=== PATIENT | female | born 2000 | race Caucasian/White ===

== ENCOUNTER 2019-02-21 14:28 | Outpatient (REF) | payer OTHER, SELFPAY ==
[2019-02-22 13:09] LABS: Chlamydia Result Negative (Negative); GC Result Negative (Negative)
== END 2019-02-21 14:48 ==
LOC: LBN 14:28
PROVIDERS: PCP Pediatrics; Visit Provider Nurse Practitioner Women's Health
DX: Z11.3 Encounter for screening for infections with a predominantly sexual mode of transmission (principal)
CPT/HCPCS: 87491; 87591

== ENCOUNTER 2019-09-14 01:39 | Outpatient (CLI) | payer OTHER, SELFPAY | END 2019-09-14 01:59 | PROVIDERS: PCP Pediatrics; Visit Provider Nurse Practitioner Family | DX: R78.71 Abnormal lead level in blood (principal) | CPT/HCPCS: 36415; 83655 ==

== ENCOUNTER 2021-03-05 12:17 | Outpatient (REF) | payer OTHER, SELFPAY ==
--- NOTE | 2021-03-05 11:15 | PAPFT_PTH ---
PATIENT: Blanquita Elena LOC: [facility]#:[id number] AGE/SX: 20/F ROOM: RE03/05/[address]: Johnna Cohen NP : 2000 BED: DIS: 03/05/2021 SPEC #: [id number] RECD: 03/05/21 13:09 STATUS: FRANCISCO REElisabeth #: [id number] OSCAR: 03/05/21 11:[address]: Johnna Cohen NP DEPT: [facility] Cytology RECD BY: Fariba Ramirez ENTERED: 03/05/21 13:10 SP TYPE: PAPFT OTHR DR: Dinora Jones Tissues: 1 - CX/ENDOCX FOR PAP SMEARS Procedures: PAP THIN PREP/[facility] Screening Comments: [id number]
== END 2021-03-05 12:18 | disposition home or self-care (01) ==
LOC: NCHCN 12:17
PROVIDERS: PCP Nurse Practitioner Family; Visit Provider Nurse Practitioner Women's Health
DX: Z12.4 Encounter for screening for malignant neoplasm of cervix (principal)
CPT/HCPCS: 88142

== ENCOUNTER 2024-02-04 17:25 | Outpatient (REF) | payer OTHER, SELFPAY ==
--- OUTSIDE RECORDS SUMMARY | 2024-02-04 17:28 | XMS_ITS | Encounter Summary ---
Author Organization [facility] Address [address] [place] [address] Care Team Providers Care Wind Development Director Name Role Phone Unavailable Primary Care Provider Unavailabl e Encounter Details Date Type Department Care Team (Late st Contact Info) Description 02/21/2019 Lab Requisition [facility] Pathology & Laboratory Medicine - [address] [address] Unknown, Provider, MD Social History Tobacco Use Types Packs/Day Years Used Date Smoking Tobacco: Never Assessed Comments Unknown Sex and Gender Information Value Date Recorded Sex Assigned at Not on file Legal Sex Female 16:06 EST Gender Identity Not on file Sexual Orientation Not on file documented as of this encounter Plan of Treatment Not on file documented as of this encounter Procedures Procedure Name Priority Date/Time Associated Diagnosis Comments CHLAMYDIA/N. GONORRHOEAE AMPLIFIED NUCLEIC ACID Routine 02/21/2019 13:10 EST documented in this encounter Results * CHLAMYDIA/N. GONORRHOEAE AMPLIFIED RNA (02/21/2019 13:10 EST) Neisseria gonorrhoeae Result Negative Negative 02/22/2019 13:05 EST [facility] Chlamydia trachomatis Result Negative Negative 02/22/2019 13:05 EST [facility] Urine URINE / Unknown 02/21/2019 1 3:10 EST 02/21/2019 21:13 EST Narrative [facility] - 02/22/2019 13:05 EST A first catch urine specimen is acceptable for detection of Gonorrhea and Chlamydia, but might detect up to 10% fewer infections when compared with vaginal and endocervical swab samples. us Provider Unknown MD MICROBIOLOGY - GENERAL ORDER PRATEEK Final Result [facility] [address] [place] [address] documented in this encounter Visit Diagnoses Not on filedocumented in this encounter
--- OUTSIDE RECORDS SUMMARY | 2024-02-04 17:28 | XMS_ITS | Clinical Summary ---
Author Organization [facility] Address [facility] [place] [address] Care Team Providers Care Accounts Payable Manager Name Role Phone Izzy Bass MD Primary Care Provider [phone]- [phone] Allergies Active Allergy Reactions Criticality Noted Date Comments Fish Containing Products Shellfish Derived Tree Nut Medications Medication Sig Dispensed Refills Start Date End Date Status CIS Free Text Med - Zyrtec 09/12/2009 Active DIPHENHYDRAMINE HCL (BENADRYL ORAL) 09/12/2009 Active fluticasone (FLOVENT HFA) 44 mcg/Actuation inhaler 2 Puff(s), Inh, Twice daily 09/12/2009 Active epiNEPHrine (EPIPEN) 0.3 mg/0.3 mL injection 0.3MG/0.3ML, IM, PRN 09/12/2009 Active Levalbuterol Tartrate (XOPENEX HFA) 45 mcg/Actuation inhaler 1-2 puffs, Inh, Q4-6H, prn 09/12/2009 Active Active Problems Problem Noted Date Diagnosed Date CIS - Allergy evaluation to date 09/12/2009 Overview (04/29/2010): SENSITIZATIONS: Dust mite 2+, cat 1+, dog 1+, grass pollen equivocal, and tree pollen 1 to 2+ (12/2008). ADDITIONAL SENSITIZATION: Hazelnut 0.37 kU/L class 1, pecan 0.60 kU/L class 1, walnut 0.51 kU/L class 1, negative testing to pistachio, sesame seed, peanut, cashew, [place] nut, and almond (12/2007). ADDITIONAL SENSITIZATION: Prick skin testing by Dr. Rosas revealed large response to walnut () with pseudopods, negative to almonds (2002). RAST ([place], 08/14/09) results requested, received, and reviewed: Positive: Clam 0.76, class 2; shrimp 0.78, class 2; salmon 1.14, class 2; hazelnut 0.41 ku/L, class 1, macadamia nut 0.57, class 1 Negative:Oyster, scallop, crab, lobster, codfish, halibut, tuna, megrim, peanut, pine nut, almond, brazil nut, food nut panel 2 (pecan, cashew, pistachio, walnut), cat, dog, amanda, sesame seed 08/2009 skin tests positive to nuts: Foods: [place] (0), [place] (4+), Cashew (0), Pecan (2+), Hazelnut (4+), [place] nut (0), Tuna(0) Controls: Positive (4+), Negative (0) Method: Single prick; Location: Back; Placed by: RN Reading/interpretation: Mega Johnson MD (measurements on testing sheet in medical record) * Reactions may still occur despite negative skin tests. Lower skin test class does NOT predict reaction severity (severe reactions may still occur with negative or low positive skin tests). Negative skin tests to foods do not have predictive value for delayed food reactions or intolerance. Continue avoidance of nuts and seafood Previous SPIROMETRY: FEV1 1.6 L, 85% predicted: FEVC 1.89 L, 86% predicted; and ratio is 0.93. No significant change after bronchodilator (12/2008). FeNO 11 ppb (12/2008). 02/2009 spirometry: FEV1 of 1.87 L, 77% predicted; the FEVC 2.11 L, 80% predicted; and the ratio is 0.89. 09/12/09 spirometry: FEV1 1.91L, 89% predicted; FVC 2.34L, 92% predicted; ratio 0.82. C/w possible mild obstruction. 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 09/12/09: No accidents with nuts. Tolerates peanut. Itching in the mouth w/ salmon twice. Avoiding seafood. Lab testing done at [facility] in July 2009. RASTS positive to seafood, low positive to hazelnut and macadamia nut. CIS - Mild persistent atopic dermatitis Overview (04/29/2010): 09/12/09: No problems CIS - Mild persistent seasonal asthma Overview (04/29/2010): 09/12/09: Doing well. No cough, no wheeze recently. In November and April had URI sx. Had some wheezing and drop in peak flows. No oral in the Spring but did use a course in November. Used Flovent 44 2p bid but weaned for the summer. Flovent helped. Currently rarely using Xopenex. No nocturnal cough. ACT = 27. perfect score. Immunizations Name Administration Dates Next Due Influenza Vaccine, Whole 12/26/2007 Social History Tobacco Use Types Packs/Day Years Used Date Smoking Tobacco: Never Sex and Gender Information Value Date Recorded Sex Assigned at Not on file Gender Identity Not on file Sexual Orientation Not on file Plan of Treatment Health Maintenance Due Date Last Done Comments Chlamydia Screening 09/22/2014 HPV vaccine (1 - 3-dose series) 09/22/2014 HIV screen 09/22/2017 Hepatitis C Screening 09/22/2017 Hepatitis B vaccine (0-59 yrs) (1) 09/22/2018 Tetanus/Diphtheria/Pertussis Vaccines (1 - Tdap) 09/22 PAP Smear 09/22/2020 Covid-19 Vaccine (1 - 2023-25 season) 2023 Influenza (Flu) vaccine (1 o f 1 - Influenza standard series) 10/24/2023 12/26/2007 Care Teams Accounts Payable Manager Relationship Specialty Start Date End Date Izzy Bass MD PCP - General 09/12/14
--- OUTSIDE RECORDS SUMMARY | 2024-02-04 17:28 | XMS_ITS | Encounter Summary ---
Author Organization [facility] Address [address] [place] [address] Care Team Providers Care Land Development Manager Name Role Phone Unavailable Primary Care Provider Unavailabl e Encounter Details Date Type Department Care Team (Late st Contact Info) Description 03/07/2021 Lab Requisition [facility] Pathology & Laboratory Medicine - [facility] [address] [place] [address] Johnna Cohen, RPG PROGRAMMER [address] [place] [phone] Encounter for gynecological examination (general) (routine) without abnormal findings Social History Tobacco Use Types Packs/Day Years Used Date Smoking Tobacco: Never Assessed Interpersonal Safety Answer Date Record ed Physically Hurt Never 01/16/2020 Verbally Threaten Not on file 01/16/2020 Comments Unknown Sex and Gender Information Value Date Recorded Sex Assigned at Not on file Legal Sex Female 16:06 EST Gender Identity Not on file Sexual Orientation Not on file documented as of this encounter Plan of Treatment Not on file documented as of this encounter Procedures Procedure Name Priority Date/Time Associated Diagnosis Comments CHLAMYDIA/N. GONORRHOEAE AMPLIFIED NUCLEIC ACID, THINPREP Today 03/05/2021 11:15 EST Encounter for gynecological examination (general) (routine) without abnormal findings documented in this encounter Results * CHLAMYDIA/N. GONORRHOEAE AMPLIFIED RNA, THINPREP (03/05/2021 11:15 EST) Neisseria gonorrhoeae Result Negative Negative 03/07/2021 14:56 EST [facility] Chlamydia trachomatis Result Negative Negative 03/07/2021 14:56 EST [facility] Papanicolaou smear specimen (specimen) CERVIX UTERI STRUCTURE / Unknown 03/05/2021 11:15 EST 03/07/2021 11:09 EST us Johnna Cohen RPG PROGRAMMER MICROBIOLOGY - GENERAL OR DERABLES Final Result Performing Organization Address City/State/[facility] Co de Phone Number [facility] [address] [place] [id number] documented in this encounter Visit Diagnoses Diagnosis Encounter for gynecological examination (general) (routine) without abnormal findings documented in this encounter
--- OUTSIDE RECORDS SUMMARY | 2024-02-04 17:28 | XMS_ITS | Encounter Summary ---
Author Organization [facility] Address [facility] [place] [address] Care Team Providers Care Ocean Fishing Guide Name Role Phone Izzy Bass MD Primary Care Provider [phone]- [phone] Reason for Visit * Reason Comments Follow-up Encounter Details Date Type Department Care Team (Late st Contact Info) Description 12/19/2014 4:00 PM EDT Office Visit Dermatology at [facility] [address] [place] [phone] Estelle Sheppard MD [facility] [address] [facility] [place] [address] Acne vulgaris; Multiple benign nevi Social History Tobacco Use Types Packs/Day Years Used Date Smoking Tobacco: Never Sex and Gender Information Value Date Recorded Sex Assigned at Not on file Gender Identity Not on file Sexual Orientation Not on file documented as of this encounter Patient Instructions * Patient Instructions* Eligio Mcfadden, ROVERTO - 12/19/2014 4:26 PM EDT Plan lillie Juares: What causes acne? Many factors contribute to the development of acne, including plugging of follicles (pores), bacteria, hormones, and inflammation. Each of these factors is treated with a different medication, and consistency with medication use is critical for achieving the best results. Maximal improvement is generally not seen until 10-12 weeks into treatment. Does diet affect acne? Studies have shown that drinking excessive amounts of cow's milk (especially skim) can worsen acne.Foods with a high glycemic index (chips, crackers, cake, sweets) have also been shown to worsen acne. Eating a balanced diet with lots of whole grains, fresh fruits, vegetables, and whole foods may help. Is acne hereditary? There is no single gene that causes acne, but children and teenagers whose parents have a history of severe acne themselves are at higher risk for developing acne. What is the best face wash to use for my child's acne? Benzoyl peroxide in a 2-5% concentration is the best face wash to use. This is available over the counter at most pharmacies, or you can purchase it online. Some good brands include Panoxyl 4% wash, Topix 5% wash, and Neutrogena Clear Pore Cleanser/Mask 3.5% (available on appCREAR). Benzoyl peroxide reduces bacteria and also prevents the development of antibiotic resistance. Keep in mind that this product may bleach pillowcases and towels, so it's safest to use white linens. Is it a good idea to pop/squeeze pimples and blackheads? No! Picking and squeezing at acne makes it worse, and can leave permanent scars. What moisturizers are best to use for patients with acne? Any moisturizer that is fragrance free and non-comedogenic is fine. Some good brands include Cetaphil, CeraVe, Aveeno, and Neutrogena. Can hair products worsen acne? Yes, some hair pomades and pastes may make acne on the forehead worst. For this reason, we recommend avoiding any thick or greasy hair products. What types of medications are used to treat acne? Topical antibiotics: reduce the amount of bacteria on the skin Topical retinoids: unplugs clogged pores, prevent formation of new blackheads Oral antibiotics: reduces inflammation and help resolve deeper, bigger acne pimples Oral retinoids (Accutane/isotretinoin): treats deeper acne, particularly acne that is causing scars Oral control pills: regulates hormones that may be contributing to acne development Oral spironolactone: blocks testosterone and may be used in females with acne documented in this encounter Progress Notes * Eligio Mcfadden LPN - 12/19/2014 4:00 PM EDT Images from the original note were not included. PEDIATRIC DERMATOLOGY FOLLOW-UP VISIT S: Blanquita Elena is here today for follow-up of multiple nevi. she was last seen by myself on 09/12/2014, at which time it was recommended that we watch the nevus on the R medial back clinically given slight asymmetry. Today Blanquita reports that she has no concerns today. No changes in her nevi as far as she is aware. Review of Systems: Other than those stated above, the patient denies any fevers, chills, night sweats, weight loss, loss of appetite or other skin complaints. Medications: Current Outpatient Prescriptions Medication Sig Dispense Refill ??? CIS Free Text Med - Zyrtec ??? DIPHENHYDRAMINE HCL (BENADRYL ORAL) ??? fluticasone (FLOVENT HFA) 44 mcg/Actuation inhaler 2 Puff(s), Inh, Twice daily ??? epiNEPHrine (EPIPEN) 0.3 mg/0.3 mL injection 0.3MG/0.3ML, IM, PRN ??? Levalbuterol Tartrate (XOPENEX HFA) 45 mcg/Actuation inhaler 1-2 puffs, Inh, Q4-6H, prn No current facility-administered medications for this visit. Allergies: Allergies Allergen Reactions ??? Fish Containing Products ??? Shellfish Derived ??? Tree Nut PMHx: Patient Active Problem List Diagnosis Code ??? CIS - Allergy evaluation to date ??? 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 CIS - Mild persistent atopic dermatitis ??? 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 A full body skin examination was performed of the scalp, face, eyelids, lips, neck, chest, abdomen,back, bilateral arms, buttocks, bilateral legs, hands, feet and nails. Findings were within normal limits except for as follows: -No change in nevi on right medial back from previous visit -7 mm symmetric brown papule on the right posterior calf -Grouped 1-2 mm brown macules coalescing into a patch with no background pigment change on the leftlateral calf A/P: 1) Overall benign appearing nevi x2 on right medial back, no change from previous visit - Discussed benign nature of lesion and provided reassurance. - No treatment necessary at this time. - Observe skin for change in color, size or character. Call if such occur. 2) Agaminated nevi vs segmental lentiginosis, left calf, reassurance provided - Discussed benign nature of lesion and provided reassurance. - No treatment necessary at this time. - Observe skin for change in color, size or character. Call if such occur. 3) Mild inflammatory acne, with no evidence of scarring. We discussed the multifactorial etiology of acne, with contributing factors including follicular plugging, bacteria, hormones, and inflammation. Each of these factors is treated with a different medication, and consistency with medication use is of utmost importance for achieving the best results. Maximal improvement is generally not seen until 10-12 weeks into treatment. More than 3 servings a week of milk has also been shown to worsen acne, with skim milk showing a more direct correlation than whole milk. Fortunately, cheese and yogurt do not have this association so teenagers with acne can still make sure that they get enough calcium this way. High glycemic indexfoods have also been shown to exacerbate acne. --start benzoyl peroxide wash (2-5% concentration) 3 times weekly Alternative treatments for those who wish to avoid antibiotics: For girls, consider: tea tree oil daily (risk is allergic contact dermatitis), spearmint tea twice daily. For boys and girls: niacinamide 750 mg (NOT niacin) +/- zinc gluconate 25 mg/d (risk is GI upset) RTC: 1 year (Level 1) ELIGIO MCFADDEN LPN has performed the documentation for this encounter in the presence of and acting as a scribe for Dr. Estelle Sheppard MD. George Calderón has performed the documentation for this encounter in the presence of and acting as a scribe for Dr. Sheppard. I performed the above scribed service and agree with the accuracy of the documentation in this encounter. Estelle Sheppard MD Calibration Checker, Pediatric Dermatology Section of Dermatology [facility], [facility]. [facility] documented in this encounter Plan of Treatment Not on file documented as of this encounter Visit Diagnoses Diagnosis Acne vulgaris Other acne Multiple benign nevi Benign neoplasm of skin, site unspecified documented in this encounter Care Teams Ocean Fishing Guide Relationship Specialty Start Date End Date Izzy Bass MD PCP - General 09/12/14 documented as of this encounter
--- OUTSIDE RECORDS SUMMARY | 2024-02-04 17:28 | XMS_ITS | Clinical Summary ---
Author Organization [facility] Address [address] [place] [address] Care Team Providers Care Tape Making Machine Operator Name Role Phone Unavailable Primary Care Provider Unavailabl e Social History Tobacco Use Types Packs/Day Years [...] Health Maintenance Due Date Last Done Comments Hepatitis C Screen 2000 Hepatitis B Vaccine (1 of 3 - 19+ 3-dose series) 09/22 COVID-19 Vaccine ( season) 2023
--- OUTSIDE RECORDS SUMMARY | 2024-02-04 17:28 | XMS_ITS | Encounter Summary ---
Author Organization [facility] Address [address] [place] [address] Care Team Providers Care Assembly Department Supervisor Name Role Phone Unavailable Primary Care Provider Unavailabl e Encounter Details Date Type Department Care Team (Late st Contact Info) Description 03/07/2021 Lab Requisition [facility] Pathology & Laboratory Medicine - [facility] [address] [place] [address] Johnna Cohen, PIPE CUTTER [address] [place] [phone] Encounter for other general examination Social History Tobacco Use Types Packs/Day Years [...] Procedure Name Priority Date/Time Associated Diagnosis Comments PAP TEST Today 03/05/2021 11:15 EST Encounter for other general examination documented in this encounter Results * PAP TEST (03/05/2021 11:15 EST) Specimens A. Cervix and/or Endocervix , ThinPrep Imaging System with Manual Evaluation 03/13/2021 13:33 EST [facility] Specimen Adequacy Satisfactory for Evaluation - transformation zone component present 03/13/2021 13:33 EST [facility] General Categorization Negative for intraepithelial lesion or malignancy 03/13/2021 13:33 EST [facility] Attestation . 03/13/2021 13:33 EST [facility] at 1333 Clinical History See below 03/13/19 13:33 EST [facility] Performing Lab [facility] 03/13/2021 13:33 EST [facility] Scanned Images 03/13/2021 13:33 EST [facility] Papanicolaou smear specimen (specimen) CERVIX UTERI STRUCTURE / Unknown 03/05/2021 11:15 EST 03/07/2021 9:49 EST us Johnna Cohen APRN PATHOLOGY ORDERABLES Bridget l Result [facility] [address] [place] [address] documented in this encounter Visit Diagnoses Diagnosis Encounter for other general examination documented in this encounter
--- OUTSIDE RECORDS SUMMARY | 2024-02-04 17:28 | XMS_ITS | Referral Summary ---
Author Organization [facility] Address [address] [place] [address] Care Team Providers Care Pharmacy Salesperson Name Role Phone Unavailable Primary Care Provider [...] Orientation Not on file Plan of Treatment Not on file
--- OUTSIDE RECORDS SUMMARY | 2024-02-04 17:28 | XMS_ITS | Encounter Summary ---
Author Organization [facility] system Address [address] [place] [address] Care Team Providers Care Client Operations Manager Name Role Phone Unavailable Primary Care Provider Unavailabl e Encounter Details Date Type Department Care Team (Late st Contact Info) Description 09/14/2019 Lab Requisition [facility] Pathology & Laboratory Medicine - [facility] [address] [place], [place] [address] Outr Resulting Lab, Provider Social History Tobacco Use Types Packs/Day Years [...] Procedure Name Priority Date/Time Associated Diagnosis Comments [facility] Routine 09/14/2019 13:30 EDT documented in this encounter Results * [facility] (09/14/2019 13:30 EDT) Lead <2.0 <=4.9 ug/dL 09/15/2019 11:43 EDT [facility] Blood VENOUS BLOOD / Unknown 09/14/2019 13:30 EDT 09/14/2019 21:32 EDT Narrative [facility] - 09/15/2019 11:43 EDT Testing performed using Graphite Furnace Atomic Absorption Spectroscopy. This test was developed and its performance characteristics determined by the [facility]. ??It has not been cleared or approved by the FDA. ??The laboratory is regulated under CLIA as qualified to perform high complexity testing. ??This test is used for clinical purposes. us Provider Outr Resulting Lab CHEMISTRY & BLOOD GA S ORDERABLES Final Result [facility] [address] [place] [address] documented in this encounter Visit Diagnoses Not on filedocumented in this encounter
--- OUTSIDE RECORDS SUMMARY | 2024-02-04 17:28 | XMS_ITS | Encounter Summary ---
Author Organization [facility] Address [facility] [place] [address] Care Team Providers Care Jira Developer Name Role Phone Izzy Bass MD Primary Care Provider [phone] Reason for Visit * Reason Comments Skin Lesion Encounter Details Date Type Department Care Team (Late st Contact Info) Description 09/12/2014 10:00 AM EDT Office Visit Dermatology at [facility] [address] [place] [address] Estelle Sheppard MD [facility] [address] [place] [address] Multiple benign nevi; Congenital nevus Discharge Disposition: Home Social History Tobacco Use Types Packs/Day Years Used Date Smoking Tobacco: Never Assessed Sex and Gender Information Value Date Recorded Sex Assigned at Not on file Gender Identity Not on file Sexual Orientation Not on file documented as of this encounter Progress Notes * Lisa Sandoval LPN - 09/12/2014 11:03 AM EDT Images from the original note were not included. PEDIATRIC DERMATOLOGY NEW PATIENT VISIT CHIEF COMPLAINT: multiple nevi REFERRED BY: Izzy Bass HISTORY OF PRESENT ILLNESS: Blanquita Elena is a 13 y.o. female who presents for evaluation of dark nevi on her back. I am seeing her in consultation at the request of Izzy Bass. 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 Previous treatments include. They are not bothersome. Uses NO ADD SPF 15-20 and up when outside. The patient's dermatology intake form was reviewed, signed, and dated. Her relevant PMH, FH, and SHincludes: PAST MEDICAL HISTORY: Eczema / sensitive skin Seasonal allergies, birch pollen sees allergy at Heart murmur work up [address] 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 CIS Free Text Med - Zyrtec ??? DIPHENHYDRAMINE HCL (BENADRYL ORAL) ??? fluticasone (FLOVENT HFA) 44 mcg/Actuation inhaler 2 Puff(s), Inh, Twice daily ??? epiNEPHrine (EPIPEN) 0.3 mg/0.3 mL injection 0.3MG/0.3ML, IM, PRN ??? Levalbuterol Tartrate (XOPENEX HFA) 45 mcg/Actuation inhaler 1-2 puffs, Inh, Q4-6H, prn No current facility-administered medications on file prior to visit. ALLERGIES: Tree nuts, fish and shell fish REVIEW OF SYSTEMS: Please see HPI and PMH. No fevers, rhinorrhea, cough, decreased appetite, diarrhea, or vomiting. PHYSICAL EXAMINATION: Interiano skin type II The patient is a well appearing female who is developmentally appropriate. A complete skin examination was performed including the scalp, face, eyelids, ears, lips, neck, chest, back, abdomen, buttocks, bilateral arms and legs, bilateral hands and feet, and nails. Findings were within normal limitsexcept for the following: - 6 mm slightly irregularly bordered papule on the right medial back just inferior to that nevus a 5 mm dark brown symmetric papule both with globular pigment pattern on dermoscopy - 7 mm symmetric brown papule on the right posterior calf Photo taken with patient verbal consent ASSESSMENT AND PLAN: 1) Overall benign-appearing nevi x 2 right medial back - Measurements and picture taken today, will plan to monitor clinically - Pt instructed to observe lesion for any changes in size, shape, color or development of symptoms and call if such occurs. Pt voiced understanding and agreement. 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 - Pt instructed to observe lesion for any changes in size, shape, color or development of symptoms and call if such occurs. Pt voiced understanding and agreement. Pharmacy: [facility] [address] [place] [phone] RTC: 3 months Appointment scheduled on her way out of clinic. Lisa Sandoval LPN has performed the documentation for this encounter in the presence of and acting asa scribe for Dr. Sheppard I performed the above scribed services and agree with the accuracy of the documentation in this encounter. Estelle Sheppard M.D. [employer] Black Belt Engineer, Pediatric Dermatology documented in this encounter Plan of Treatment Not on file documented as of this encounter Visit Diagnoses Diagnosis Multiple benign nevi Benign neoplasm of skin, site unspecified Congenital nevus Benign neoplasm of skin, site unspecified documented in this encounter Care Teams Jira Developer Relationship Specialty Start Date End Date Izzy Bass MD PCP - General 09/12/14 documented as of this encounter
[2024-02-07 12:49] LABS: Chlamydia Result Negative (Negative); GC Result Negative (Negative)
== END 2024-02-04 17:26 | disposition home or self-care (01) ==
LOC: LBN 17:25
PROVIDERS: PCP Nurse Practitioner Family; Visit Provider Obstetrics & Gynecology
DX: Z11.3 Encounter for screening for infections with a predominantly sexual mode of transmission (principal)
CPT/HCPCS: 87491; 87591